=== PATIENT | female | born 1995 | race Caucasian/White ===

== ENCOUNTER → 2020-03-18 | Outpatient (CLI) | payer OTHER | LOC: EMI 11:00 | DX: R55 Syncope and collapse (principal) | CPT/HCPCS: 70551 ==

== ENCOUNTER → 2020-03-24 | Outpatient (CLI) | payer OTHER | END | disposition home or self-care (01) | LOC: CATH 10:00 | DX: R55 Syncope and collapse (principal) ==

== ENCOUNTER → 2020-05-15 | Outpatient (CLI) | payer OTHER | LOC: RT 10:45 | DX: R55 Syncope and collapse (principal); R94.31 Abnormal electrocardiogram [ECG] [EKG] | CPT/HCPCS: 36415; 93005 ==

== ENCOUNTER → 2021-06-04 | Outpatient (CLI) | payer OTHER | LOC: EXRD 15:39 | DX: R22.42 Localized swelling, mass and lump, left lower limb (principal) | CPT/HCPCS: 93971 ==

== ENCOUNTER 2021-06-05 18:32 | Emergency (ER) | payer OTHER ==
[2021-06-05 21:46] LABS: HEMOGLOBIN 11.5 gm/dl (12.3-15.3); RED BLOOD COUNT 4.14 M/UL (4.00-5.10); WHITE BLOOD COUNT 7.1 K/UL (4.5-11.0)
[2021-06-05 22:09] LABS: BUN/CREATININE RATIO 10 (0-10)
== END 2021-06-06 00:08 | disposition home or self-care (01) ==
LOC: ER1 18:32
PROVIDERS: Physician Assistant Medical
DX: J90 Pleural effusion, not elsewhere classified (principal); M79.89 Other specified soft tissue disorders; Z88.0 Allergy status to penicillin; Z88.2 Allergy status to sulfonamides
CPT/HCPCS: 80053; 82550; 82553; 84439; 84443; 84484; 85025; 85379; 93005; 99285; Q9967

== ENCOUNTER → 2021-06-26 | Outpatient (CLI) | payer OTHER | LOC: ECHO 12:25 | DX: R06.02 Shortness of breath (principal); R60.9 Edema, unspecified | CPT/HCPCS: ECHO; 93306 ==